=== PATIENT | female | born 2000 | race Caucasian/White ===

== ENCOUNTER 2021-05-09 14:31 | Emergency (ER) | payer MEDICAID ==
[~2021-05-09] VITALS: Ht 154.9 cm; Wt 77.0 kg
[2021-05-09] MEDS ORDERED: CARB-274 EACH EAR (17:42)
[2021-05-09 17:51] VITALS: BP 118/86
== END 2021-05-09 17:52 | disposition home or self-care (01) ==
LOC: ER 14:31
DX: H92.12 Otorrhea, left ear (principal); H61.23 Impacted cerumen, bilateral
CPT/HCPCS: 99282